=== PATIENT | female | born 1995 | race American Indian/Alaskan Native ===

== ENCOUNTER 2016-11-08 23:16 | Outpatient (CLI) | payer MEDICAID ==
[2016-11-09 00:19] VITALS: BP 103/64
[2016-11-09] MEDS ORDERED: LACTATED RINGERS 500 ML IV ONE (00:30)
[2016-11-09] MEDS ORDERED: LACTATED RINGERS 1,000 ML ONE (00:31)
[2016-11-09 01:02] LABS: Bilirubin,Urine NEG (Negative); Blood,Urine NEG (Negative); Ketones,Urine NEG (Negative); Leukocyte Esterase,Urine NEG (Negative); Mucus,Urine FEW /HPF; Nitrite,Urine NEG (Negative); Protein,Urine <15 mg/dL mg/dL (Negative); WBC,Urine < 1.0 /HPF (0.0-6.0)
== END 2016-11-09 01:53 | disposition home or self-care (01) ==
LOC: TRG 23:16
PROVIDERS: ATTEND Obstetrics & Gynecology
DX: O26.892 Other specified pregnancy related conditions, second trimester (principal); R10.9 Unspecified abdominal pain; Z3A.20 20 weeks gestation of pregnancy
CPT/HCPCS: 81001; 96360; J7120

== ENCOUNTER 2016-12-19 16:29 | Outpatient (CLI) | payer MEDICAID ==
[2016-12-19 18:13] VITALS: BP 113/62
[2016-12-19] MEDS ORDERED: LACTATED RINGERS 1,000 ML ONE (18:21)
[2016-12-19] MEDS ORDERED: LACTATED RINGERS 1,000 ML IV SCH (19:00)
[2016-12-19 19:09] LABS: Hematocrit 37.8 % (30.3-42.9); Mean Corpuscular HGB Conc 34 % (30-34); Mean Corpuscular Hemoglobin 31 pg (28-32); Mean Corpuscular Volume 90 fl (79-97); Platelet Count 278 K/mm3 (140-440); Red Blood Count 4.21 M/mm3 (3.65-5.03); Red Cell Distribution Width 13.3 % (13.2-15.2); White Blood Count 6.4 K/mm3 (4.5-11.0)
[2016-12-19 19:19] LABS: Bacteria,Urine 2+ /HPF (Negative); Bilirubin,Urine NEG (Negative); Blood,Urine NEG (Negative); Ketones,Urine TR mg/dL (Negative); Leukocyte Esterase,Urine MOD (Negative); Mucus,Urine 2+ /HPF; Nitrite,Urine NEG (Negative); Protein,Urine <15 mg/dL mg/dL (Negative); Urobilinogen,Urine < 2.0 mg/dL (<2.0)
[2016-12-19] MEDS ORDERED: BRETHINE SUB-Q PRN (20:14)
[2016-12-19 20:31] LABS: Potassium TNR mmol/L (3.6-5.0); Sodium TNR mmol/L (137-145)
[2016-12-19 20:32] LABS: Anion Gap TNR mmol/L; BUN/Creatinine Ratio TNR; Blood Urea Nitrogen TNR mg/dL (7-17); Carbon Dioxide TNR mmol/L (22-30); Chloride TNR mmol/L (98-107)
[2016-12-19 20:33] LABS: Alanine Aminotransferase TNR units/L (7-56); Albumin TNR g/dL (3.9-5); Bilirubin,Total TNR mg/dL (0.1-1.2); Calcium TNR mg/dL (8.4-10.2); Glucose TNR mg/dL (65-100); Total Protein TNR g/dL (6.3-8.2)
[2016-12-19 20:34] LABS: Albumin/Globulin Ratio TNR %; Alkaline Phosphatase TNR units/L (35-129)
[2016-12-19 21:17] LABS: Hematocrit 37.8 % (30.3-42.9); Mean Corpuscular HGB Conc 35 % (30-34); Mean Corpuscular Hemoglobin 31 pg (28-32); Mean Corpuscular Volume 91 fl (79-97); Platelet Count 230 K/mm3 (140-440); Red Blood Count 4.16 M/mm3 (3.65-5.03); Red Cell Distribution Width 12.9 % (13.2-15.2)
[2016-12-19 21:24] LABS: Alanine Aminotransferase 12 units/L (7-56); Albumin 3.5 g/dL (3.9-5); Albumin/Globulin Ratio 1.1 %; Alkaline Phosphatase 62 units/L (35-129); Anion Gap 16 mmol/L; Bilirubin,Total 0.4 mg/dL (0.1-1.2); Blood Urea Nitrogen 6 mg/dL (7-17); Calcium 9.2 mg/dL (8.4-10.2); Carbon Dioxide 22 mmol/L (22-30); Chloride 94.2 mmol/L (98-107); Glucose 70 mg/dL (65-100); Potassium 3.4 mmol/L (3.6-5.0); Sodium 129 mmol/L (137-145); Total Protein 6.7 g/dL (6.3-8.2)
== END 2016-12-19 21:47 | disposition home or self-care (01) ==
LOC: TRG 16:29
PROVIDERS: ATTEND Obstetrics & Gynecology
DX: O47.02 False labor before 37 completed weeks of gestation, second trimester (principal); Z3A.26 26 weeks gestation of pregnancy
CPT/HCPCS: 36415; 59025; 80053; 81001; 85027; 96360; 96372; J3105; J7120

== ENCOUNTER 2017-03-05 17:49 | Outpatient (CLI) | payer MEDICAID ==
[2017-03-05] MEDS ORDERED: LACTATED RINGERS 1,000 ML ONE (19:03)
[2017-03-05 19:22] VITALS: BP 112/63
[2017-03-05] MEDS ORDERED: LACTATED RINGERS 1,000 ML IV ONE (20:00)
--- NOTE | 2017-03-06 07:33 | Ultrasound Report ---
BIOPHYSICAL PROFILE: INDICATION: Decreased movement. COMPARISON: None similar. TECHNIQUE: Transabdominal ultrasound with Doppler interrogation. 2 - breathing movements 2 - movements 2 - posture and tone 2 - Qualitative amniotic fluid volume 8 - TOTAL SCORE OF POSSIBLE 8 Heart Rate (bpm) 143
--- NOTE | 2017-03-06 07:34 | Ultrasound Report ---
OB LIMITED INDICATION: Decreased movement. COMPARISON: None similar at this institution. TECHNIQUE: Transabdominal grayscale ultrasound with Doppler interrogation. Gestation: [place] Position: Cephalic Amniotic Fluid: WNL (7-24 cm) CARMINE = 15.2 cm Heart Rate: 143 BPM
== END 2017-03-05 21:32 | disposition home or self-care (01) ==
LOC: TRG 17:49
PROVIDERS: ATTEND Obstetrics & Gynecology
DX: O47.1 False labor at or after 37 completed weeks of gestation (principal); Z3A.38 38 weeks gestation of pregnancy
CPT/HCPCS: 59025; 76815; 76819; 96360; J7120

== ENCOUNTER 2017-03-18 14:34 | Inpatient (IN) | payer MEDICAID ==
[2017-03-18] MEDS ORDERED: ZOFRAN IV PRN (16:38)
[2017-03-18] MEDS ORDERED: MINERAL OIL PO PRN (16:38)
--- NOTE | 2017-03-18 16:38 | History and Physical Report ---
History of Present Illness Date of examination: 03/18/17 Chief complaint: In active labor History of present illness: 21-year-old at 40+ weeks gestation presents in active labor, she is a [facility] patient. care has been unremarkable per patient, unsure GBS status. 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 denies: gonorrhea, hepatitis B, hepatitis C, herpes, HIV, trichomonas Social history: single, full code. denies: smoking, alcohol abuse, prescription drug abuse, IV drug use - Obstetrical History Expected Date of Delivery: 03/15/17 (?) Actual Gestation: 40 Week(s) 3 Day(s) : 1 Medications and Allergies Allergies Allergy/AdvReac Type Severity Reaction Status Date / Time aspirin Allergy Unknown Verified 03/18/17 15:04 Review of Systems Constitutional: no fever, no chills, no weakness, no chronic headaches Cardiovascular: no chest pain, no orthopnea, no edema, no syncope, no lightheadedness, no shortness of breath, no dyspnea on exertion, no high blood pressure Respiratory: no shortness of breath, no dyspnea on exertion Gastrointestinal: no nausea, no vomiting Genitourinary: contractions, no vaginal bleeding, no leakage of fluid - Vital Signs Vital signs: Vital Signs Pulse BP 77 128/77 03/18/17 14:40 03/18/17 14:40 Temp Pulse Resp BP Pulse Ox 98.2 F 85 18 128/77 100 03/18/17 14:56 03/18/17 16:29 03/18/17 14:56 03/18/17 14:40 03/18/17 16:29 - Physical Exam Abdomen: Positive: normal appearance, soft. Negative: distention, tenderness, guarding, rigidity Genitourinary (Female): Positive: normal external genitalia Uterus: Positive: enlarged (EFW ~ 3500). Negative: tender Extremities: Positive: normal - Obstetrical FHR: category 1 Cervical Dilatation: 5 (Per RN exam) Results All other labs normal. Assessment and Plan A: 21-year-old at 40 weeks in active labor -Cat 1 tracing P: -Admit -Obtain routine labs -Epidural when necessary -Expectant management -Anticipate normal vaginal delivery - Patient Problems (1) 40 weeks gestation of Current Visit: Yes Status: Acute (2) Active labor at term Current Visit: Yes Status: Acute
[2017-03-18] MEDS ORDERED: BRETHINE SUB-Q PRN (16:47)
[2017-03-18] MEDS ORDERED: ePHEDrine SULFATE IV PRN (16:50)
[2017-03-18] MEDS ORDERED: BRETHINE IVP PRN (16:50)
[2017-03-18] MEDS ORDERED: PITOCin/NS 30 UNIT/500ML 30 UNITS/500 ML BAG IV SCH ×2 (17:00)
[2017-03-18] MEDS ORDERED: POLYCILLIN/NS 2 GM/100 ML 2 GM/100 ML BAG IV ONE (17:00)
[2017-03-18] MEDS ORDERED: XYLOCAINE 2% INFILTRATI ONE ×2 (17:00→23:54)
[2017-03-18] MEDS ORDERED: LACTATED RINGERS 1,000 ML IV SCH (17:00)
[2017-03-18] MEDS ORDERED: PITOCin/NS 20 UNIT/1000ML DRIP 20 UNITS/1,000 ML BAG IV SCH (17:00)
[2017-03-18 17:43] LABS: Hematocrit 36.7 % (30.3-42.9); Hemoglobin 12.7 gm/dl (10.1-14.3); Mean Corpuscular HGB Conc 35 % (30-34); Mean Corpuscular Hemoglobin 31 pg (28-32); Mean Corpuscular Volume 88 fl (79-97); Platelet Count 217 K/mm3 (140-440); Red Blood Count 4.16 M/mm3 (3.65-5.03); Red Cell Distribution Width 13.2 % (13.2-15.2); White Blood Count 8.6 K/mm3 (4.5-11.0)
[2017-03-18] MEDS ORDERED: POLYCILLIN/NS 1 GM/50 ML 1 GM/50 ML BAG IV SCH (20:43)
--- NOTE | 2017-03-18 22:06 | Progress Note ---
Assessment and Plan A: 21-year-old at 40 weeks in active labor -Cat 1 tracing -Still declines an Epidural P: -Continue present care -Anticipate - Patient Problems (1) 40 weeks gestation of Current Visit: Yes Status: Acute (2) Active labor at term Current Visit: Yes Status: Acute Subjective - Subjective Date of service: 03/18/17 Interval history: Patient on Pit at 6 mu/min. Cervix still 5.5 cm and -2 station Patient reports: new complaints, movement normal, contractions, no loss of fluid, no vaginal bleeding Objective - Vital Signs Vital Signs: Vital Signs - 12hr 03/18/17 03/18/17 03/18/17 14:40 14:56 15:07 Temperature 98.2 F Pulse Rate 77 89 Respiratory 18 Rate Blood Pressure 128/77 O2 Sat by Pulse 99 Oximetry 03/18/17 03/18/17 03/18/17 15:12 15:17 15:22 Temperature Pulse Rate 84 98 H 95 H Respiratory Rate Blood Pressure O2 Sat by Pulse 100 100 100 Oximetry 03/18/17 03/18/17 03/18/17 15:27 15:32 15:34 Temperature Pulse Rate 104 H 81 90 Respiratory Rate Blood Pressure O2 Sat by Pulse 100 100 77 L Oximetry 03/18/17 03/18/17 03/18/17 15:37 15:42 15:49 Temperature Pulse Rate 89 80 76 Respiratory Rate Blood Pressure O2 Sat by Pulse 100 99 86 Oximetry 03/18/17 03/18/17 03/18/17 15:54 15:59 16:04 Temperature Pulse Rate 77 85 84 Respiratory Rate Blood Pressure O2 Sat by Pulse 100 100 100 Oximetry 03/18/17 03/18/17 03/18/17 16:09 16:19 16:24 Temperature Pulse Rate 80 85 85 Respiratory Rate Blood Pressure O2 Sat by Pulse 100 77 L 100 Oximetry 03/18/17 03/18/17 03/18/17 16:29 16:34 16:39 Temperature Pulse Rate 85 80 86 Respiratory Rate Blood Pressure O2 Sat by Pulse 100 100 99 Oximetry 03/18/17 03/18/17 03/18/17 16:44 16:49 16:51 Temperature Pulse Rate 76 78 81 Respiratory Rate Blood Pressure O2 Sat by Pulse 100 98 85 Oximetry 03/18/17 03/18/17 03/18/17 16:54 16:59 17:06 Temperature Pulse Rate 90 79 97 H Respiratory Rate Blood Pressure O2 Sat by Pulse 99 99 100 Oximetry 03/18/17 03/18/17 03/18/17 17:11 17:12 17:16 Temperature Pulse Rate 83 88 71 Respiratory Rate Blood Pressure O2 Sat by Pulse 100 91 80 L Oximetry 03/18/17 03/18/17 03/18/17 17:17 17:21 17:23 Temperature Pulse Rate 79 82 89 Respiratory Rate Blood Pressure O2 Sat by Pulse 92 100 93 Oximetry 03/18/17 03/18/17 03/18/17 17:26 17:28 17:31 Temperature Pulse Rate 83 75 Respiratory Rate Blood Pressure O2 Sat by Pulse 100 93 67 L Oximetry 03/18/17 03/18/17 03/18/17 17:36 17:41 17:46 Temperature Pulse Rate 71 78 99 H Respiratory Rate Blood Pressure O2 Sat by Pulse 100 100 100 Oximetry 03/18/17 03/18/17 03/18/17 17:51 17:56 18:01 Temperature Pulse Rate 83 85 93 H Respiratory Rate Blood Pressure O2 Sat by Pulse 92 100 96 Oximetry 03/18/17 03/18/17 03/18/17 18:06 18:11 18:12 Temperature Pulse Rate 83 76 70 Respiratory Rate Blood Pressure O2 Sat by Pulse 100 100 94 Oximetry 03/18/17 03/18/17 03/18/17 18:16 18:21 18:26 Temperature Pulse Rate 80 83 85 Respiratory Rate Blood Pressure O2 Sat by Pulse 100 100 83 L Oximetry 03/18/17 03/18/17 03/18/17 18:31 18:36 18:41 Temperature Pulse Rate 97 H 89 90 Respiratory Rate Blood Pressure O2 Sat by Pulse 100 100 100 Oximetry 03/18/17 03/18/17 03/18/17 18:51 18:57 19:12 Temperature Pulse Rate 77 75 97 H Respiratory Rate Blood Pressure 117/65 123/76 O2 Sat by Pulse 99 Oximetry 03/18/17 03/18/17 03/18/17 19:27 19:42 19:58 Temperature Pulse Rate 75 93 H 85 Respiratory Rate Blood Pressure 111/56 102/59 124/77 O2 Sat by Pulse Oximetry 03/18/17 03/18/17 03/18/17 20:12 20:27 20:43 Temperature Pulse Rate 82 76 90 Respiratory Rate Blood Pressure 114/63 102/58 131/84 O2 Sat by Pulse Oximetry 03/18/17 03/18/17 21:31 21:50 Temperature Pulse Rate 78 68 Respiratory Rate Blood Pressure 111/62 115/58 O2 Sat by Pulse Oximetry - Exam FHR: category 1 Cervical Dilatation: 5.5 station: -2 - Labs Labs: Abnormal Labs 03/18/17 17:20 MCHC 35 H Laboratory Results - last 24 hr 03/18/17 03/18/17 17:20 17:20 WBC 8.6 RBC 4.16 Hgb 12.7 Hct 36.7 MCV 88 MCH 31 MCHC 35 H RDW 13.2 Plt Count 217 Blood Type B POSITIVE Antibody Screen TNR MARIALUISA Antibody Screen Negative
[2017-03-18] MEDS ORDERED: SUBLIMAZE IV PRN (22:27)
[2017-03-19] MEDS ORDERED: XYLOCAINE 2% INFILTRATI ONE (00:20)
--- NOTE | 2017-03-19 00:40 | Procedure Note ---
OB Delivery Note - Delivery Date of Delivery: 03/19/17 Surgeon: TAIT MORE Estimated blood loss: 300cc - Vaginal Delivery presentation: vertex, compound ( arm presenting) Delivery position: OA Delivery induction: none Delivery augmentation: pitocin Delivery monitor: external FHT, external uterine Route of delivery: Delivery placenta: spontaneous Delivery cord: nuchal cord (loose and reduced on delivery), 3 umbilical vessels Episiotomy: none Delivery laceration: 2nd degree, vaginal side wall, other (right periurethral) Delivery repair: vicryl Anesthesia: local - Infant A at 1 minute: 8 at 5 minutes: 9 Gender: Male (delivery at 00:15 AM, weight 5 lbs. 13 oz. or 2631 g)
[2017-03-19] MEDS ORDERED: TUCKS PAD TP PRN (00:41)
[2017-03-19] MEDS ORDERED: PHENERGAN PO PRN (00:41)
[2017-03-19] MEDS ORDERED: MILK OF MAGNESIA PO PRN (00:41)
[2017-03-19] MEDS ORDERED: SOLARCAINE ALOE TP PRN (00:41)
[2017-03-19] MEDS ORDERED: PHENERGAN PR PRN (00:41)
[2017-03-19] MEDS ORDERED: ZOFRAN IV PRN (00:41)
[2017-03-19] MEDS ORDERED: NORCO 5/325 PO PRN (00:41)
[2017-03-19] MEDS ORDERED: TYLENOL PO PRN (00:41)
[2017-03-19] MEDS ORDERED: BENADRYL PO PRN (00:41)
[2017-03-19] MEDS ORDERED: DULCOLAX PR PRN (00:41)
[2017-03-19] MEDS ORDERED: LANSINOH TP PRN (00:41)
[2017-03-19] MEDS ORDERED: PITOCin/NS 20 UNIT/1000ML DRIP 20 UNITS/1,000 ML BAG IV SCH (01:00)
[2017-03-19] MEDS ORDERED: SODIUM CHLORIDE FLUSH SYRINGE 10 ML IV PRN (01:00)
[2017-03-19] MEDS: MOTRIN PO SCH ×3 (02:55→18:08)
[2017-03-19] MEDS: COLACE PO SCH ×3 (09:55→22:55)
[2017-03-19] MEDS: FEOSOL PO SCH ×2 (09:56→22:55)
[2017-03-19] MEDS: PRENATAL VITAMIN PO SCH (09:56)
[2017-03-19 13:24] LABS: Hematocrit 31.2 % (30.3-42.9); Hemoglobin 10.6 gm/dl (10.1-14.3)
[2017-03-19] MEDS: SENOKOT S PO SCH (22:55)
[2017-03-20] MEDS: MOTRIN PO SCH ×3 (03:06→12:00)
--- NOTE | 2017-03-20 07:37 | Progress Note ---
Assessment and Plan PPD#1 s/p -Doing well P: -Continue present care -Anticipate discharge in 24-48 hours - Patient Problems (1) (normal spontaneous vaginal delivery) Current Visit: Yes Status: Acute (2) 40 weeks gestation of Current Visit: Yes Status: Acute (3) Active labor at term Current Visit: Yes Status: Acute Subjective - Subjective Date of service: 03/20/17 Principal diagnosis: PPD# 1 Interval history: Patient seen and examined, stable doing well Patient reports: appetite normal, voiding normally, pain well controlled, flatus , ambulating normally, no dizzy ambulation, no nauseated [place]: doing well Objective - Vital Signs Latest vital signs: Vital Signs Temp Pulse Resp BP Pulse Ox 03/20/17 05:00 98.3 F 66 18 120/67 03/19/17 23:40 98.6 F 80 18 131/72 03/19/17 20:00 99 F 82 18 109/69 03/19/17 15:50 98 F 69 20 117/62 03/19/17 12:47 98.9 F 84 18 118/72 100 03/19/17 09:14 99.0 F 78 18 114/63 100 Intake and Output 03/19/17 03/20/17 03/20/17 22:59 06:59 14:59 Intake Total 480 480 Balance 480 480 Intake: Oral 240 Intake, Free Water 240 480 Other: Total, Intake Amount 240 # Voids Void 1 1 - Exam Abdomen: Present: normal appearance, soft. Absent: distention, tenderness, guarding, rigidity Uterus: Present: firm, fundal height below umbilicus Extremities: Present: normal
--- NOTE | 2017-03-20 07:40 | Discharge Summary ---
Providers - Providers Date of Admission: 03/18/17 19:00 Date of discharge: 03/21/17 Attending physician: TATI MORE Primary care physician: TATI MORE Hospitalization Reason for admission: active labor Delivery: Episiotomy: none Laceration: vaginal side wall, 2nd degree Other procedures: none complications: none Discharge diagnosis: IUP at term delivered baby: male Hospital course: Uncomplicated hospital course Condition at discharge: Good Disposition: DC-01 TO HOME OR SELFCARE - Discharge Diagnoses (1) (normal spontaneous vaginal delivery) Status: Acute (2) 40 weeks gestation of Status: Acute (3) Active labor at term Status: Acute Plan - Discharge Medications Prescriptions: Ibuprofen [Motrin 600 MG tab] 600 mg PO Q8H PRN #30 tablet PRN Reason: Pain Multivitamin with Iron [Multivitamins with Iron] 1 each PO DAILY #30 tablet - Provider Discharge Summary Activity: no sex for 6 weeks, no heavy lifting 4 weeks, no strenuous exercise Diet: routine Additional instructions: [] Smoking cessation referral if applicable(refer to patient education folder for contact #) [] Refer to [facility]'s [facility] Center Booklet Call your doctor immediately for: * Fever > 100.5 * Heavy vaginal bleeding ( >1 pad per hour) * Severe persistent headache * Shortness of breath * Reddened, hot, painful area to leg or breast * Drainage or odor from incision. * Keep incision clean and dry at all times and follow doctor's instructions regarding bathing/showering - Follow up plan Follow up: TATI MORE MD [Primary Care Provider] - 6 Weeks
[2017-03-20] MEDS: FEOSOL PO SCH (10:00)
[2017-03-20] MEDS: COLACE PO SCH (10:00)
[2017-03-20] MEDS: PRENATAL VITAMIN PO SCH (10:00)
[2017-03-20] MEDS: SENOKOT S PO SCH (10:00)
[2017-03-20 13:42] VITALS: BP 117/67
== END 2017-03-20 18:21 | disposition home or self-care (01) | DRG 775 ==
LOC: TRG 14:34 → LD 14:34 → TRG 18:59 → LD 19:00 → OB 03-19 02:45
PROVIDERS: ADMIT Obstetrics & Gynecology Gynecology; ATTEND Obstetrics & Gynecology Gynecology
PROC: 0KQM0ZZ Repair Perineum Muscle, Open Approach (ICD-10-PCS; principal; 2017-03-19)
PROC: 10E0XZZ Delivery of Products of Conception, External Approach (ICD-10-PCS; principal; 2017-03-19)
DX: O69.81X0 Labor and delivery complicated by cord around neck, without compression, not applicable or unspecified (principal); Z3A.40 40 weeks gestation of pregnancy; Z37.0 Single live birth; O70.1 Second degree perineal laceration during delivery; O99.52 Diseases of the respiratory system complicating childbirth; J45.909 Unspecified asthma, uncomplicated; Z88.6 Allergy status to analgesic agent
CPT/HCPCS: 36415; 85014; 85018; 85027; 86850; 86900; 86901; 99211; A6250; G0463; J0290; J2590; J3010; J7120

== ENCOUNTER 2021-02-18 17:59 | Inpatient (IN) | payer BC, MEDICAID ==
[2021-02-18] MEDS ORDERED: LACTATED RINGERS 1,000 ML IV ONE (18:33)
[2021-02-18] MEDS ORDERED: LIDOCAINE (2%) 20 MG/1 ML VIAL 20 ML MDV INFILTRATI ONE (19:10)
[2021-02-18] MEDS ORDERED: TERBUTALINE 1 MG/1 ML INJ SUB-Q PRN (19:10)
[2021-02-18] MEDS ORDERED: LACTATED RINGERS 1,000 ML IV SCH (19:15)
[2021-02-18 19:34] LABS: Bacteria,Urine 1+ /HPF (Negative); Bilirubin,Urine NEG (Negative); Blood,Urine NEG (Negative); Color,Urine Yellow (Yellow); Mucus,Urine FEW /HPF; Protein,Urine <15 mg/dL mg/dL (Negative)
[2021-02-18] MEDS ORDERED: BETAMET ACET/BETAMET NA PH 6 MG/ML INJ 5 ML MDV IM SCH (20:00)
--- NOTE | 2021-02-18 20:38 | History and Physical Report ---
History of Present Illness Date of examination: 02/18/21 Date of admission: 02/18/2021 Chief complaint: Contractions History of present illness: 25 year old presents to L&D with complaint of contractions since 2:00 PM today. Patient denies vaginal bleeding or leaking of fluid. Patient reports active movement. Patient states she receives care at [facility] but no records are available. EDC 03/20/2021 per patient report. Patient reports she has had trichomonas during this which was treated. She denies any other problems during this . History of a full term vaginal with her last but had depression after delivery. labs and US ordered upon admission. IV hydration, Brethine, and Celestone ordered. 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 denies: gonorrhea, hepatitis B, hepatitis C, herpes, HIV, syphilis Family/Genetic History: diabetes, hypertension Social history: lives with family, full code. denies: smoking, alcohol abuse, prescription drug abuse, IV drug use - Obstetrical History Expected Date of Delivery: 03/20/21 Actual Gestation: 35 Week(s) 5 Day(s) : 2 Para: 1 Hx # Term Pregnancies: 1 Number of Pregnancies: 0 Spontaneous Abortions: 0 Induced : 0 Number of Living Children: 1 Medications and Allergies Allergies Allergy/AdvReac Type Severity Reaction Status Date / Time aspirin Allergy Unknown Verified 03/18/17 15:04 Home Medications Medication Instructions Recorded Confirmed Last Taken Type Ibuprofen [Motrin 600 MG tab] 600 mg PO Q8H PRN #30 tablet 03/19/17 Unknown Rx Multivitamin with Iron 1 each PO DAILY #30 tablet 03/19/17 Unknown Rx [Multivitamins with Iron] Active Meds: Active Medications Betamethasone Acet/Betameth SodPhos (Betamet Acet/Betamet Na Ph 6 Mg/Ml Inj 5 Ml Mdv) 12 mg IM Q24H ARIADNE Stop: 02/19/21 20:01 Lactated Ringer's (Lactated Ringers) 1,000 mls @ 999 mls/hr IV BOLUS ONE Stop: 02/18/21 19:33 Lactated Ringer's (Lactated Ringers) 1,000 mls @ 125 mls/hr IV DIRECT ARIADNE Lidocaine (Lidocaine (2%) 20 Mg/1 Ml Vial 20 Ml Mdv) 20 ml INFILTRATI ONCE ONE Stop: 02/18/21 19:11 Terbutaline Sulfate (Terbutaline 1 Mg/1 Ml Inj) 0.25 mg SUB-Q ONCE PRN PRN Reason: Hyperstimulation/Hypertonicity Review of Systems All systems: negative (contractions and pelvic pressure) - Vital Signs Vital signs: Vital Signs Pulse BP 82 110/60 02/18/21 18:39 02/18/21 18:39 Temp Pulse Resp BP Pulse Ox 99.2 F 108 H 18 110/60 99 02/18/21 18:53 02/18/21 19:12 02/18/21 18:53 02/18/21 18:39 02/18/21 19:12 - Physical Exam Abdomen: Positive: normal appearance, soft. Negative: distention, tenderness, guarding, rigidity Genitourinary (Female): Positive: normal external genitalia, normal perenium. Negative: perineal/vulvar lesions Vagina: Positive: normal moisture Uterus: Positive: enlarged. Negative: tender Anus/Rectum: Positive: normal perianal skin Extremities: Negative: tenderness, edema - Obstetrical Uterine Contraction Monitor Mode: External Cervical Dilatation: 3 Cervical Effacement Percentage: 50 station: -3 Uterine Contraction Pattern: Irregular Uterine Contraction Intensity: Mild Results All other labs normal. Assessment and Plan A: at 35 weeks, 5 days gestation. contractions. No records available. GBS unknown. P: Admit. IV hydration. Celestone IM. Ampicillin IV. Continuous EFM. US and labs. Request records.
[2021-02-18] MEDS ORDERED: AMPICILLIN/NS 2 GM/100 ML 2 GM/100 ML BAG IV ONE (21:00)
--- NOTE | 2021-02-18 21:48 | Ultrasound Report ---
ULTRASOUND OBSTETRIC INDICATION / CLINICAL INFORMATION: CARMINE, EGA/EDC, location/integrity of placenta, pres. Clinical Gestational Age (GA): 35.5 weeks.days TECHNIQUE: Transabdominal. COMPARISON: 03/05/2017 FINDINGS: There is a single intrauterine . Biparietal Diameter = 8.6 cm = 34.4 weeks.days Head Circumference = 31.0 cm = 34.4 weeks.days Abdominal Circumference = 26.1 cm = 30.2 weeks.days Femur Length = 6.5 cm = 33.4 weeks.days Average Ultrasound Age (AUA) = 32.2 weeks.days Heart Rate: 146 beats per minute. Estimated Weight in grams (if calculated): 1901 Position: cephalic. Placenta: Posterior fundal grade 1 and free of the os. Amniotic Fluid Volume: normal Amniotic Fluid Index (CARMINE) in cm (if calculated): 12.0. Maternal Adnexa: No significant abnormality. IMPRESSION: 1. Single, living intrauterine with estimated sonographic age of 33.2 weeks.days 2. No significant sonographic abnormality. Signer Name: Donte Fernandes MD Signed: 02/18/2021 9:43 PM Workstation Name: [id number]
[2021-02-18 23:16] LABS: Hematocrit 30.7 % (30.3-42.9); Hemoglobin 10.6 gm/dl (10.1-14.3); Mean Corpuscular HGB Conc 35 % (30-34); Mean Corpuscular Volume 86 fl (79-97); Platelet Count 236 K/mm3 (140-440); Red Blood Count 3.58 M/mm3 (3.65-5.03); Red Cell Distribution Width 13.7 % (13.2-15.2)
[2021-02-18 23:22] LABS: Hepatitis C Virus Antibody Non-Reactive (NonReactive)
[2021-02-19] MEDS: AMPICILLIN/NS 1 GM/50 ML 1 GM/50 ML BAG IV SCH ×2 (03:21→06:03)
--- NOTE | 2021-02-19 07:19 | Event Note ---
Date: 02/19/21 SVE 3.
[2021-02-19] MEDS ORDERED: ePHEDrine SULFATE 50 MG/1 ML INJ IV PRN (11:27)
[2021-02-19] MEDS ORDERED: ACETAMINOPHEN 325 MG TAB PO PRN (11:27)
[2021-02-19] MEDS ORDERED: TERBUTALINE 1 MG/1 ML INJ SUB-Q PRN (11:27)
[2021-02-19 16:33] VITALS: BP 112/58
[2021-02-19 16:49] LABS: Amphetamine Screen,Urine Negative; Benzodiazepines Screen,Urine Negative; Cannabinoid Screen,Urine Negative; Cocaine Screen,Urine Negative; Methadone Screen,Urine Negative; Opiate Screen,Urine Negative
== END 2021-02-19 16:51 | disposition home or self-care (01) | DRG 781 ==
LOC: TRG 17:59 → APU 17:59 → TRG 18:00 → LD 19:10 → APU 19:32 → TRG 02-19 08:36 → LD 02-19 08:36 → UNDOADMIN 02-19 12:21 → LD 02-19 12:21
PROVIDERS: ADMIT Obstetrics & Gynecology; ATTEND Obstetrics & Gynecology
DX: O99.513 Diseases of the respiratory system complicating pregnancy, third trimester (principal); Z83.3 Family history of diabetes mellitus; Z82.49 Family history of ischemic heart disease and other diseases of the circulatory system; Z3A.35 35 weeks gestation of pregnancy; Z88.8 Allergy status to other drugs, medicaments and biological substances; Z20.822 Contact with and (suspected) exposure to COVID-19
CPT/HCPCS: 36415; 59025; 76815; 76816; 80307; 81001; 85027; 86592; 86706; 86762; 86803; 86850; 86900; 86901; 87806; 96372; G0378; J0290; J0702; J3105; J7120; U0003

== ENCOUNTER 2021-02-19 20:04 | Outpatient (CLI) | payer MEDICAID ==
[2021-02-19] MEDS ORDERED: BETAMET ACET/BETAMET NA PH 6 MG/ML INJ 5 ML MDV IM ONE (22:30)
[2021-02-19 23:26] LABS: Bacteria,Urine 1+ /HPF (Negative); Bilirubin,Urine NEG (Negative); Blood,Urine NEG (Negative); Color,Urine Yellow (Yellow); Mucus,Urine FEW /HPF
== END 2021-02-20 01:09 | disposition home or self-care (01) ==
LOC: TRG 20:04 → APU 20:05 → TRG 02-20 01:09
PROVIDERS: ATTEND Obstetrics & Gynecology
DX: O47.03 False labor before 37 completed weeks of gestation, third trimester (principal); Z3A.35 35 weeks gestation of pregnancy
CPT/HCPCS: 59025; 81001; 96372; J0702

== ENCOUNTER 2021-02-20 18:45 | Observation (INO) | payer MEDICAID ==
[2021-02-20] MEDS ORDERED: LACTATED RINGERS 500 ML IV ONE (19:27)
--- NOTE | 2021-02-20 21:13 | Ultrasound Report ---
ULTRASOUND BIOPHYSICAL PROFILE INDICATION / CLINICAL INFORMATION: BPP. COMPARISON: 02/18/2021. FINDINGS: BREATHING MOVEMENT = 0 GROSS BODY MOVEMENT = 2 TONE = 2 QUALITATIVE AMNIOTIC FLUID VOLUME = 2 TOTAL BIOPHYSICAL SCORE = 6/8 AMNIOTIC FLUID INDEX (cm) = 10.6 PRESENTATION: Cephalic. HEART RATE (beats per minute): 150 IMPRESSION: 1. biophysical profile = 03/13. No breathing movements were identified. Signer Name: Dharmesh Frias MD Signed: 02/20/2021 9:09 PM Workstation Name: [id number]
[2021-02-20 21:28] LABS: Bacteria,Urine 4+ /HPF (Negative); Bilirubin,Urine NEG (Negative); Blood,Urine NEG (Negative); Color,Urine Yellow (Yellow); Mucus,Urine 1+ /HPF; Protein,Urine <15 mg/dL mg/dL (Negative); Urobilinogen,Urine < 2.0 mg/dL (<2.0)
[2021-02-20] MEDS ORDERED: DOCUSATE SODIUM 100 MG CAP PO PRN (22:19)
[2021-02-20] MEDS ORDERED: ACETAMINOPHEN 325 MG TAB PO PRN (22:19)
[2021-02-21 07:19] VITALS: BP 114/60
[2021-02-21] MEDS ORDERED: PRENATAL VIT27-FE FUMARATE-FOLIC ACID VIT TAB PO SCH (10:00)
--- NOTE | 2021-02-21 10:03 | Ultrasound Report ---
ULTRASOUND BIOPHYSICAL PROFILE ULTRASOUND OB LIMITED INDICATION: BPP/CARMINE TECHNIQUE: Transabdominal ultrasound imaging. COMPARISON: 02/21/2020 FINDINGS: breathing movement = 0 Gross body movement = 2 tone = 2 Qualitative amniotic fluid volume = 2 Total biophysical score = 6/8 Amniotic fluid index is 13.0 cm. Presentation is cephalic. heart rate is 134 beats per minute. IMPRESSION: biophysical profile equals 6/8. Signer Name: Nathan Bo Jr, MD Signed: 02/21/2021 9:59 AM Workstation Name: [id number]
[2021-02-21] MEDS ORDERED: LACTATED RINGERS 1,000 ML IV ONE (13:00)
== END 2021-02-21 13:29 | disposition home or self-care (01) ==
LOC: APU 18:45 → TRG 18:45 → LD 22:19 → TRG 22:19
PROVIDERS: ADMIT Obstetrics & Gynecology; ATTEND Obstetrics & Gynecology
DX: O36.8130 Decreased fetal movements, third trimester, not applicable or unspecified (principal); O99.013 Anemia complicating pregnancy, third trimester; Z3A.36 36 weeks gestation of pregnancy
CPT/HCPCS: 59025; 76815; 76819; 81001; G0378

== ENCOUNTER 2021-03-16 16:45 | Inpatient (IN) | payer MEDICAID ==
[2021-03-16] MEDS ORDERED: MINERAL OIL 30 ML ORAL LIQD PO PRN (17:32)
[2021-03-16] MEDS ORDERED: LIDOCAINE (2%) 20 MG/1 ML VIAL 20 ML MDV INFILTRATI ONE (17:32)
[2021-03-16] MEDS ORDERED: fentaNYL 100 MCG/2 ML INJ IV PRN (17:32)
[2021-03-16] MEDS ORDERED: ePHEDrine SULFATE 50 MG/1 ML INJ IV PRN (17:32)
[2021-03-16] MEDS ORDERED: TERBUTALINE 1 MG/1 ML INJ SUB-Q PRN (17:32)
[2021-03-16] MEDS ORDERED: LACTATED RINGERS 1,000 ML IV SCH (17:45)
--- NOTE | 2021-03-16 17:45 | History and Physical Report ---
History of Present Illness Date of examination: 03/16/21 Date of admission: 03/16/2021 Chief complaint: Contractions History of present illness: 25 year old at 39 weeks, 3 days gestation presents to L&D with regular contractions. Patient denies LOF or VB. Patient reports active movement. Patient received care at [facility] and records are available. LMP: unknown. EDC: 03/20/2021. Previous vaginal delivery in 2017. significant for the following: trichomonas (treated during ), left sciatica pain. labs are as follows: B+, antibody screen negative, rubella immune, RPR nonreactive, HIV negative, hepatitis C antibody negative, hepatitis B surface antigen negative, hemoglobin electrophoresis AA, no GBS result on chart, 1 hour sugar test 109, AFP negative, gonorrhea negative, chlamydia negative, trichomonas positive (treated). 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 denies: chlamydia, gonorrhea, hepatitis B, hepatitis C, herpes, HIV, syphilis Family/Genetic History: diabetes, hypertension Social history: lives with family, full code. denies: smoking, alcohol abuse, prescription drug abuse, IV drug use - Obstetrical History Expected Date of Delivery: 03/20/21 Actual Gestation: 39 Week(s) 3 Day(s) : 2 Para: 1 Hx # Term Pregnancies: 1 Number of Pregnancies: 0 Spontaneous Abortions: 0 Induced : 0 Number of Living Children: 1 Medications and Allergies Allergies Allergy/AdvReac Type Severity Reaction Status Date / Time aspirin Allergy Unknown Verified 03/18/17 15:04 Home Medications Medication Instructions Recorded Confirmed Last Taken Type Ibuprofen [Motrin 600 MG tab] 600 mg PO Q8H PRN #30 tablet 03/19/17 02/19/21 Unknown Rx Multivitamin with Iron 1 each PO DAILY #30 tablet 03/19/17 02/19/21 Unknown Rx [Multivitamins with Iron] Active Meds: Active Medications Ephedrine Sulfate (Ephedrine Sulfate 50 Mg/1 Ml Inj) 10 mg IV Q2M PRN PRN Reason: Hypotension Fentanyl (Fentanyl 100 Mcg/2 Ml Inj) 100 mcg IV Q2H PRN PRN Reason: Pain,Severe (7-10) LABOR PAIN Oxytocin/Sodium Chloride (Pitocin/Ns 30 Unit/500ml) 30 units in 500 mls @ 2 mls/hr IV TITR ARIADNE; Protocol Lactated Ringer's (Lactated Ringers) 1,000 mls @ 125 mls/hr IV DIRECT ARIADNE Oxytocin/Sodium Chloride (Pitocin/Ns 30 Unit/500ml) 30 units in 500 mls @ 40 mls/hr IV TITR ARIADNE; Protocol Ampicillin Sodium (Ampicillin/Ns 2 Gm/100 Ml) 2 gm in 100 mls @ 100 mls/hr IV ONCE ONE; Protocol Stop: 03/16/21 18:31 Ampicillin Sodium (Ampicillin/Ns 1 Gm/50 Ml) 1 gm in 50 mls @ 100 mls/hr IV Q4H ARIADNE; Protocol Lidocaine (Lidocaine (2%) 20 Mg/1 Ml Vial 20 Ml Mdv) 20 ml INFILTRATI ONCE ONE Stop: 03/16/21 17:33 Mineral Oil (Mineral Oil 30 Ml Oral Liqd) 30 ml PO QHS PRN PRN Reason: Constipation Terbutaline Sulfate (Terbutaline 1 Mg/1 Ml Inj) 0.25 mg SUB-Q ONCE PRN PRN Reason: Hyperstimulation/Hypertonicity Review of Systems All systems: negative (contractions) - Physical Exam Abdomen: Positive: normal appearance, soft. Negative: distention, tenderness, guarding, rigidity Genitourinary (Female): Positive: normal external genitalia, normal perenium. N egative: perineal/vulvar lesions (single small scratch noted in perianal area (patient states does not hurt or itch, not ulcerated, patient denies any history of herpes and states she was tested for herpes and was negative)) Vagina: Positive: normal moisture Uterus: Positive: enlarged. Negative: tender Anus/Rectum: Positive: normal perianal skin Extremities: Negative: tenderness, edema - Obstetrical FHR: category 1 Uterine Contraction Monitor Mode: External Cervical Dilatation: 5.5 Cervical Effacement Percentage: 50 (BBOW) station: -2 Uterine Contraction Pattern: Regular Uterine Contraction Intensity: Moderate Results Result Diagrams: 03/16/21 17:35 All other labs normal. Assessment and Plan A: at 39 weeks, 3 days gestation. Active labor. GBS unknown. P: Admit. GBS prophylaxis. EFM. Discussed with patient that small scratch is seen in perianal area. Pt. thinks this is traumatic from recent waxing she received. Discussed with patient that there is no way to know the etiology of this scratch at this time. Discussed with patient possible sequelae to baby (including blindness, seizures, brain damage, ) if scratch happened to be herpetic. Patient states she is sure she does not have herpes. Patient states she understands and is willing to assume the above risks and wants to proceed with vaginal ; patient declined section.
[2021-03-16] MEDS ORDERED: OXYTOCIN DRIP 30 UNITS/500 ML BAG IV SCH ×2 (18:00)
[2021-03-16] MEDS ORDERED: AMPICILLIN/NS 2 GM/100 ML 2 GM/100 ML BAG IV ONE (18:00)
[2021-03-16 18:15] LABS: Hematocrit 33.9 % (30.3-42.9); Hemoglobin 11.4 gm/dl (10.1-14.3); Mean Corpuscular HGB Conc 34 % (30-34); Mean Corpuscular Volume 82 fl (79-97); Platelet Count 238 K/mm3 (140-440); Red Blood Count 4.12 M/mm3 (3.65-5.03); Red Cell Distribution Width 14.4 % (13.2-15.2)
[2021-03-16 18:40] LABS: Hepatitis C Virus Antibody Non-Reactive (NonReactive)
[2021-03-16] MEDS ORDERED: AMPICILLIN/NS 1 GM/50 ML 1 GM/50 ML BAG IV SCH (22:00)
[2021-03-17] MEDS ORDERED: MAGNESIUM HYDROXIDE (MOM) ORAL LIQD UDC PO PRN (00:44)
[2021-03-17] MEDS ORDERED: WITCH HAZEL/ GLYCERIN PAD TP PRN (00:44)
[2021-03-17] MEDS ORDERED: LANOLIN/ZINC/DIMETHICONE (LANSINOH) 7 GM TP PRN (00:44)
--- NOTE | 2021-03-17 00:53 | Procedure Note ---
OB Delivery Note - Delivery Date of Delivery: 03/17/21 Surgeon: LUCIAN PORTER Estimated blood loss: 200cc - Vaginal Delivery presentation: vertex Delivery position: OA Intrapartum events: none Delivery induction: oxytocin Delivery monitor: external FHT, external uterine Route of delivery: Delivery placenta: spontaneous Delivery cord: 3 umbilical vessels Episiotomy: none Delivery laceration: none Delivery comments: Spontaneous vaginal delivery at 00:30 of liveborn female infant weighing 6 lb. 4 oz. over intact perineum with apgars of 8/9. No anesthesia. No nuchal cord; was atraumatic. Baby placed skin to skin with mom immediately after . Spontaneous cry and respirations. Baby dried with warm towels and suctioned with bulb syringe. 3 vessel cord double clamped and cut and baby taken to radiant warmer for further suctioning. Spontaneous delivery of intact placenta and membranes. EBL 200 cc. Pitocin to IV fluids after delivery of placenta. Fundus firm and midline. No lacerations noted. Vaginal sweep negative. Sponge count correct. Mother and baby stable.
[2021-03-17] MEDS: HYDROcodone/ACETAMINOPHEN 5-325 MG TAB PO PRN ×2 (01:06→07:10)
[2021-03-17 15:10] LABS: Hematocrit 29.9 % (30.3-42.9); Hemoglobin 10.3 gm/dl (10.1-14.3)
[2021-03-18] MEDS: HYDROcodone/ACETAMINOPHEN 5-325 MG TAB PO PRN (00:14)
--- NOTE | 2021-03-18 14:18 | Progress Note ---
Assessment and Plan A: day 1 S/P . Anemia. Back pain. P: Supplement with iron. Urinalysis and urine culture. Heating pad to back prn. Encouraged ambulation. Subjective - Subjective Date of service: 03/18/21 Principal diagnosis: day 1 S/P Interval history: Has anemia; iron supplementation ordered. Patient reports lower back pain; urinalysis and urine culture ordered. Pt. to try heating pad and pain medication. Patient denies headache or leg pain or difficulty walking. Patient reports: appetite normal, voiding normally, pain well controlled, flatus, ambulating normally, no dizzy ambulation, no nauseated : doing well (under bili lights) Objective - Vital Signs Latest vital signs: Vital Signs Temp Pulse Resp BP Pulse Ox 03/18/21 08:28 98.1 F 65 18 114/70 99 03/18/21 01:37 98.0 F 74 20 108/58 100 03/17/21 16:04 97.9 F 91 H 20 131/65 100 Intake and Output 03/17/21 03/18/21 03/18/21 23:59 07:59 15:59 Intake Total 360 240 240 Balance 360 240 240 Intake: Oral 360 240 240 Other: Total, Intake Amount 360 240 240 # Voids Void 1 1 1 - Exam Cardiovascular: Present: Regular rate Lungs: Present: Clear to auscultation Abdomen: Present: normal appearance, soft. Absent: distention, tenderness, guarding, rigidity Uterus: Present: normal, firm, fundal height below umbilicus. Absent: bogginess, tenderness Extremities: Present: normal. Absent: tenderness, edema - Labs Labs: Abnormal lab results 03/17/21 Range/Units 14:50 Hct 29.9 L (30.3-42.9) %
[2021-03-18] MEDS: IBUPROFEN 600 MG TAB PO PRN (14:47)
[2021-03-18] MEDS: FERROUS SULFATE 325 MG TAB PO SCH (21:30)
[2021-03-19] MEDS: HYDROcodone/ACETAMINOPHEN 5-325 MG TAB PO PRN (02:40)
[2021-03-19] MEDS: IBUPROFEN 600 MG TAB PO PRN ×2 (05:23→16:08)
[2021-03-19] MEDS ORDERED: TETANUS,DIPH,PERTUSS(ACELL) VACCINE 0.5 ML SYRINGE IM ONE (06:00)
[2021-03-19 07:16] LABS: Bacteria,Urine 1+ /HPF (Negative); Bilirubin,Urine NEG (Negative); Blood,Urine LG (Negative); Color,Urine Yellow (Yellow); Mucus,Urine FEW /HPF; Protein,Urine <15 mg/dL mg/dL (Negative); Urobilinogen,Urine < 2.0 mg/dL (<2.0)
[2021-03-19] MEDS: FERROUS SULFATE 325 MG TAB PO SCH (09:38)
--- NOTE | 2021-03-19 11:28 | Progress Note ---
Assessment and Plan A: PP Day #2 Stable P: Follow Routine Orders D/C home today RTO in 6 Weeks Subjective - Subjective Date of service: 03/19/21 Principal diagnosis: day 1 S/P Patient reports: appetite normal, voiding normally, pain well controlled, flatus, bowel movement, ambulating normally [place]: doing well Objective - Vital Signs Latest vital signs: Vital Signs Temp Pulse Resp BP BP Pulse Ox 03/19/21 07:38 98 F 63 18 117/63 99 03/19/21 00:02 97.9 F 76 16 114/75 99 03/18/21 17:13 98.2 F 68 18 116/62 99 03/18/21 14:47 20 Intake and Output 03/18/21 03/19/21 03/19/21 22:59 06:59 14:59 Intake Total 600 480 Balance 600 480 Intake: Oral 120 Intake, Free Water 480 480 Other: Total, Intake Amount 120 # Voids Void 2 2 - Exam Breasts: Present: normal Cardiovascular: Present: Regular rate Lungs: Present: Clear to auscultation, Normal air movement Abdomen: Present: normal appearance, soft, normal bowel sounds Uterus: Present: normal, firm, fundal height below umbilicus Extremities: Present: normal - Labs Labs: Abnormal lab results 03/18/21 Range/Units 06:00 Urine WBC (Auto) 40.0 H (0.0-6.0) /HPF
--- NOTE | 2021-03-19 11:30 | Discharge Summary ---
Providers - Providers Date of Admission: 03/17/21 01:15 Date of discharge: 03/19/21 Attending physician: NEDRA WEBER MD Primary care physician: MARYANN HALL JR, MD Hospitalization Reason for admission: active labor Delivery: Episiotomy: none Laceration: none Other procedures: none complications: none Discharge diagnosis: IUP at term delivered baby: female Condition at discharge: Good Disposition: DC-01 TO HOME OR SELFCARE Plan - Provider Discharge Summary Activity: routine, no sex for 6 weeks Additional instructions: [] Smoking cessation referral if applicable(refer to patient education folder for contact #) [] Refer to [facility]'s [facility] Booklet Call your doctor immediately for: * Fever > 100.5 * Heavy vaginal bleeding ( >1 pad per hour) * Severe persistent headache * Shortness of breath * Reddened, hot, painful area to leg or breast * Drainage or odor from incision. * Keep incision clean and dry at all times and follow doctor's instructions regarding bathing/showering - Follow up plan Follow up: NEDRA WEBER MD [Staff Physician] - 6 Weeks Forms: [facility] Discharge Summary
[2021-03-19 16:58] VITALS: BP 144/74
== END 2021-03-19 17:02 | disposition home or self-care (01) | DRG 775 ==
LOC: TRG 16:45 → APU 16:48 → LD 18:33 → TRG 03-17 01:14 → LD 03-17 01:15 → OB 03-17 06:07
PROVIDERS: ADMIT Obstetrics & Gynecology
PROC: 10E0XZZ Delivery of Products of Conception, External Approach (ICD-10-PCS; principal; 2021-03-17)
PROC: 3E033VJ Introduction of Other Hormone into Peripheral Vein, Percutaneous Approach (ICD-10-PCS; 2021-03-17)
PROC: 3E0234Z Introduction of Serum, Toxoid and Vaccine into Muscle, Percutaneous Approach (ICD-10-PCS; 2021-03-19)
DX: O99.52 Diseases of the respiratory system complicating childbirth (principal); O99.344 Other mental disorders complicating childbirth; O90.81 Anemia of the puerperium; D64.9 Anemia, unspecified; F90.9 Attention-deficit hyperactivity disorder, unspecified type; Z3A.39 39 weeks gestation of pregnancy; Z37.0 Single live birth; Z23 Encounter for immunization; J45.909 Unspecified asthma, uncomplicated
CPT/HCPCS: 36415; 81001; 85014; 85018; 85027; 86592; 86706; 86803; 86850; 86900; 86901; 87086; 90471; 90715; 99211; G0378; G0463; J0290; J2590; J3010; J7120; U0003

== ENCOUNTER 2022-05-11 11:23 | Outpatient (CLI) | payer MEDICAID ==
[2022-05-11 12:13] VITALS: BP 113/74
[2022-05-11 13:06] LABS: Bilirubin,Urine NEG (Negative); Blood,Urine NEG (Negative); Color,Urine Amber (Yellow)
[2022-05-11 13:10] LABS: Bacteria,Urine 2+ /HPF (Negative); Mucus,Urine 3+ /HPF
[2022-05-11] MEDS ORDERED: LACTATED RINGERS 500 ML IV ONE (14:00)
--- NOTE | 2022-05-11 14:03 | Ultrasound Report ---
US OB limited INDICATION / CLINICAL INFORMATION: carmine. COMPARISON: None available. FINDINGS: Amniotic fluid index is 9.3 cm, within normal limits. Single viable intrauterine is noted with a heart rate of 155. IMPRESSION: 1. Single viable IUP. 2. CARMINE is within normal limits. Signer Name: Vahid Barba MD Signed: 05/11/2022 1:58 PM Workstation Name: [id number]
--- NOTE | 2022-05-11 16:10 | Event Note ---
Date: 05/11/22 26 y/o presents to triage @ 33.1 wks with c/o LOF since this am. She denies vag bleeding or uc and admits to pos FM. Reactive NST, CARMINE 9.3., Neg fern, + BV and vag kennedi per wet [place]. Flagyl and Terazol were prescribed. Pt was advised to call if uc, vag bleeding, or LOF continues. She was also advised to follow up with her provider on her scheduled appoint on 05/14/22.
== END 2022-05-11 16:41 | disposition home or self-care (01) ==
LOC: TRG 11:23 → APU 11:28 → TRG 16:41
PROVIDERS: ATTEND Obstetrics & Gynecology
DX: O42.913 Preterm premature rupture of membranes, unspecified as to length of time between rupture and onset of labor, third trimester (principal); Z3A.33 33 weeks gestation of pregnancy
CPT/HCPCS: 36415; 59025; 76815; 81001; 82731; 87086

== ENCOUNTER 2022-06-18 19:34 | Inpatient (IN) | payer MEDICAID ==
[2022-06-18] MEDS ORDERED: LACTATED RINGERS 1,000 ML ONE (19:55)
[2022-06-18] MEDS ORDERED: OXYTOCIN DRIP 30,000 MILLIUNITS/500 ML BAG IV ONE (19:56)
[2022-06-18] MEDS ORDERED: CARBOPROST TROMETHAMINE 250 MCG/1 ML INJ IM PRN (20:00)
[2022-06-18] MEDS ORDERED: TERBUTALINE 1 MG/1 ML INJ SUB-Q PRN (20:00)
[2022-06-18] MEDS ORDERED: OXYTOCIN DRIP 30 UNITS/500 ML BAG IV SCH ×2 (20:00)
[2022-06-18] MEDS ORDERED: miSOPROStol 200 MCG TAB PR PRN (20:00)
[2022-06-18] MEDS ORDERED: ePHEDrine SULFATE 50 MG/1 ML INJ IV PRN (20:00)
[2022-06-18] MEDS ORDERED: LACTATED RINGERS 1,000 ML IV SCH (20:00)
[2022-06-18] MEDS ORDERED: LOPERAMIDE 2 MG CAP PO PRN (20:00)
[2022-06-18] MEDS ORDERED: MINERAL OIL 30 ML ORAL LIQD PO PRN (20:00)
[2022-06-18] MEDS ORDERED: BUTORPHANOL 2 MG/1 ML INJ IV PRN ×2 (20:00)
[2022-06-18] MEDS ORDERED: METHYLERGONOVINE MALEATE 0.2 MG/ML VIAL IM PRN (20:00)
[2022-06-18] MEDS ORDERED: OXYTOCIN 10 UNIT/1 ML INJ IM PRN (20:00)
[2022-06-18] MEDS ORDERED: ACETAMINOPHEN 325 MG TAB PO PRN ×2 (20:00→20:32)
[2022-06-18] MEDS ORDERED: fentaNYL 100 MCG/2 ML INJ ONE (20:09)
--- NOTE | 2022-06-18 20:09 | History and Physical Report ---
History of Present Illness Date of examination: 06/18/22 Date of admission: Jun 18, 2022 Chief complaint: Contractions History of present illness: 26 y/o with care at [facility] presents to Labor and delivery in active labor. GBS +. care uneventful. Past History Past Medical History: no pertinent history Past Surgical History: no surgical history Family/Genetic History: none Social history: no significant social history - Obstetrical History Expected Date of Delivery: 06/28/22 Actual Gestation: 38 Week(s) 4 Day(s) : 3 Para: 2 Number of Living Children: 2 Medications and Allergies Allergies Allergy/AdvReac Type Severity Reaction Status Date / Time aspirin Allergy Unknown Verified 03/18/17 15:04 Home Medications Medication Instructions Recorded Confirmed Last Taken Type Terconazole 1 applicator VG QHS 03/17/21 03/17/21 Unknown History Terconazole 0.4% (Nf) [Terazol 7 45 gm VG QHS 7 Days #1 tube 05/11/22 Unknown Rx (Nf)] metroNIDAZOLE [Flagyl] 500 mg PO Q12HR 7 Days #14 tab 05/11/22 Unknown Rx Review of Systems All systems: negative - Vital Signs Vital signs: Vital Signs Pulse BP 88 128/79 06/18/22 19:47 06/18/22 19:47 Temp Pulse Resp BP Pulse Ox 105 H 128/79 100 06/18/22 20:01 06/18/22 19:47 06/18/22 20:01 - Physical Exam Breasts: Positive: deferred Cardiovascular: Regular rate Lungs: Positive: Clear to auscultation Abdomen: Positive: soft Genitourinary (Female): Positive: normal external genitalia Vulva: both: normal Vagina: Positive: normal moisture Uterus: Positive: enlarged Deep Tendon Reflex Grade: Normal +2 - Obstetrical FHR: category 1 Cervical Dilatation: 7 Cervical Effacement Percentage: 100 station: -1 Uterine Contraction Pattern: Regular Uterine Contraction Intensity: Moderate Results All other labs normal. Assessment and Plan A: Active labor at 38+ weeks P: Expect
[2022-06-18] MEDS ORDERED: LIDOCAINE (2%) 20 MG/1 ML VIAL 20 ML MDV INFILTRATI ONE (20:15)
--- NOTE | 2022-06-18 20:31 | Procedure Note ---
OB Delivery Note - Delivery Date of Delivery: 06/18/22 Surgeon: PHILLY DC Estimated blood loss: 100cc - Vaginal Delivery presentation: vertex Delivery position: OA Intrapartum events: none Delivery induction: none Delivery augmentation: rupture of membranes Delivery monitor: external FHT, external uterine Route of delivery: Delivery placenta: spontaneous Delivery cord: 3 umbilical vessels Episiotomy: none Delivery laceration: none Anesthesia: intravenous Delivery comments: of a viable female 5# 6oz on 06/18/2022 @ 2018 over intact perineum. 8/9. Placenta delivered 3VCI. QBL 100cc. FF @ U-2, mother and baby doing well. - Infant A at 1 minute: 8 at 5 minutes: 9 Infant Gender: Female (5# 6oz)
[2022-06-18] MEDS ORDERED: LANOLIN/ZINC/DIMETHICONE (LANSINOH) 7 GM TP PRN (20:32)
[2022-06-18] MEDS ORDERED: oxyCODONE /ACETAMINOPHEN 5-325MG TAB PO PRN (20:32)
[2022-06-18] MEDS ORDERED: WITCH HAZEL/ GLYCERIN PAD TP PRN (20:32)
[2022-06-18] MEDS ORDERED: diphenhydrAMINE 25 MG CAP PO PRN (20:32)
[2022-06-18] MEDS ORDERED: AMPICILLIN/NS 2 GM/100 ML 2 GM/100 ML BAG IV ONE (21:00)
[2022-06-18] MEDS ORDERED: fentaNYL 100 MCG/2 ML INJ IV ONE (21:00)
[2022-06-18 21:45] LABS: Hematocrit 31.8 % (30.3-42.9); Hemoglobin 10.5 gm/dl (10.1-14.3); Mean Corpuscular HGB Conc 33 % (30-34); Mean Corpuscular Volume 86 fl (79-97); Platelet Count 217 K/mm3 (140-440); Red Blood Count 3.68 M/mm3 (3.65-5.03); Red Cell Distribution Width 13.8 % (13.2-15.2)
[2022-06-19] MEDS ORDERED: AMPICILLIN/NS 1 GM/50 ML 1 GM/50 ML BAG IV SCH
[2022-06-19] MEDS: IBUPROFEN 800 MG TAB PO SCH ×3 (06:11→18:09)
--- NOTE | 2022-06-19 08:28 | Progress Note ---
Assessment and Plan A: PPD # 1- stable P: Discharge home tomorrow Discharge instructions given Subjective - Subjective Date of service: 06/19/22 Principal diagnosis: PPD # 1 Interval history: Feels good, no complaints Patient reports: appetite normal [place]: doing well Objective - Vital Signs Latest vital signs: Vital Signs Temp Pulse Resp BP Pulse Ox 06/19/22 04:26 98.1 F 61 20 110/65 98 06/19/22 00:55 98.1 F 69 20 128/87 98 06/18/22 23:55 98 F 19 100 06/18/22 23:44 67 111/59 06/18/22 23:39 74 84 06/18/22 23:36 66 99 06/18/22 23:31 71 98 06/18/22 23:26 77 97 06/18/22 23:21 76 99 06/18/22 23:16 80 99 06/18/22 23:11 70 99 06/18/22 23:06 73 100 06/18/22 23:01 67 100 06/18/22 22:56 106 H 99 06/18/22 22:51 70 99 06/18/22 22:46 82 99 06/18/22 22:41 78 98 06/18/22 22:36 90 99 06/18/22 22:31 87 99 06/18/22 22:26 82 100 06/18/22 22:21 84 99 06/18/22 22:16 86 99 06/18/22 22:11 76 99 06/18/22 22:06 96 H 99 06/18/22 22:01 100 H 98 06/18/22 21:56 70 99 06/18/22 21:51 73 100 06/18/22 21:50 72 110/59 06/18/22 21:46 73 99 06/18/22 21:41 80 99 06/18/22 21:36 82 99 06/18/22 21:31 90 100 06/18/22 21:26 73 100 06/18/22 21:21 85 119/59 100 06/18/22 21:20 86 85 06/18/22 21:16 81 100 06/18/22 21:11 84 100 06/18/22 21:06 92 H 100 06/18/22 21:01 91 H 100 06/18/22 20:56 86 100 06/18/22 20:51 92 H 100 06/18/22 20:49 83 110/53 06/18/22 20:46 84 99 06/18/22 20:41 91 H 99 06/18/22 20:37 87 92 06/18/22 20:36 96 H 98 06/18/22 20:34 84 120/61 06/18/22 20:31 82 99 06/18/22 20:26 81 100 06/18/22 20:21 87 100 06/18/22 20:18 114 H 94 06/18/22 20:16 119 H 100 06/18/22 20:13 84 64 L 06/18/22 20:11 94 H 100 06/18/22 20:07 82 136/68 06/18/22 20:06 98 F 93 H 18 100 06/18/22 20:01 105 H 100 06/18/22 19:56 111 H 100 06/18/22 19:47 88 128/79 Intake and Output 06/18/22 06/19/22 06/19/22 22:59 06:59 14:59 Intake Total 360 Balance 360 Intake: Oral 120 Intake, Free Water 240 Other: Total, Intake Amount 120 Weight 176 lb Estimated Blood Loss 100 - Exam Breasts: Present: deferred Cardiovascular: Present: Regular rate Lungs: Present: Clear to auscultation Abdomen: Present: normal appearance Uterus: Present: fundal height below umbilicus Extremities: Present: normal
--- NOTE | 2022-06-19 08:29 | Discharge Summary ---
Providers - Providers Date of Admission: 06/18/22 20:00 Date of discharge: 06/20/22 Attending physician: MIRNA BRYAN MD Primary care physician: MIRNA BRYAN MD Hospitalization Reason for admission: active labor Delivery: Episiotomy: none Laceration: none complications: none baby: female Hospital course: uneventful hospital course Condition at discharge: Good Disposition: 01 HOME / SELF CARE / HOMELESS Plan - Provider Discharge Summary Activity: routine, no sex for 6 weeks, no strenuous exercise Diet: routine Instructions: routine Additional instructions: [] Smoking cessation referral if applicable(refer to patient education folder for contact #) [] Refer to [facility]'s [facility] Booklet Call your doctor immediately for: * Fever > 100.5 * Heavy vaginal bleeding ( >1 pad per hour) * Severe persistent headache * Shortness of breath * Reddened, hot, painful area to leg or breast * Drainage or odor from incision. * Keep incision clean and dry at all times and follow doctor's instructions regarding bathing/showering - Follow up plan Follow up: MIRNA BRYAN MD [Primary Care Provider] - 6 Weeks
[2022-06-20] MEDS: IBUPROFEN 800 MG TAB PO SCH (00:42)
[2022-06-20 21:37] VITALS: BP 122/68
== END 2022-06-20 20:40 | disposition home or self-care (01) | DRG 775 ==
LOC: TRG 19:34 → APU 19:38 → LD 19:51 → TRG 20:00 → LD 20:00 → OB 06-19 00:36
PROVIDERS: ADMIT Obstetrics & Gynecology Gynecology; ATTEND Obstetrics & Gynecology Gynecology
PROC: 10E0XZZ Delivery of Products of Conception, External Approach (ICD-10-PCS; principal; 2022-06-18)
DX: O99.824 Streptococcus B carrier state complicating childbirth (principal); Z3A.38 38 weeks gestation of pregnancy; Z37.0 Single live birth; Z20.822 Contact with and (suspected) exposure to COVID-19; Z23 Encounter for immunization; Z88.6 Allergy status to analgesic agent
CPT/HCPCS: 36415; 85014; 85018; 85027; 86850; 86900; 86901; G0378; J0290; J2590; J3010; J7120; U0003